=== PATIENT | male | born 1950 | race Caucasian/White ===

== ENCOUNTER → 2017-01-04 | Outpatient (REF) | payer MEDICARE, MEDICAID ==
[~2017-01-04] MED LIST: ADV500INH INH; ALBU17IN INH; ASPI1TAB PO; ASPI81TA13 PO; ATOR1TAB21 PO; AZIT500T2 PO; BUPR150T5 PO; CEFD1CAP8 PO; CEFT500T3 PO; CLAR10CA3 PO; HYDR-3713 PO; IPRA2IN INH; IPRASOL4 INH; LISI-542 PO; LISI25TA PO; LORA10TA2 PO; NIAC1TAB PO; NICO14DI3 TD; NICO21DI5 TD; NORCOTAB PO; PRED10PA PO; PRED20TA PO; SING10TA32 PO; SPIR1CAP INH; SYMB16INH INH
[2017-01-04 13:52] LABS: ALBUMIN 3.8 GM/DL (3.2-5.2); ALBUMIN/GLOBULIN RATIO 1.06 (1.00-1.93); BILIRUBIN,DIRECT 0.3 MG/DL (0.0-0.2); BILIRUBIN,TOTAL 0.6 MG/DL (0.2-1.0); TOTAL PROTEIN 7.4 GM/DL (6.4-8.2)
== END ==
LOC: M SFHCPLAZ 10:39
PROVIDERS: ATTEND Family Medicine
DX: E78.2 Mixed hyperlipidemia (principal)

== ENCOUNTER 2017-02-23 22:29 | Observation (INO) | payer MEDICARE, MEDICAID ==
[~2017-02-23] VITALS: Ht 167.6 cm; Wt 49.7 kg
[~2017-02-23 22:29] MED LIST changes: +LISI2.5T76 PO; -LISI25TA PO
[2017-02-23] MEDS ORDERED: methylPREDNISolone INJ 125 MG/2 ML VIAL (J2930) IV ONE (23:00)
[2017-02-23] MEDS ORDERED: IPRATROPIUM 0.5MG/ALBUTEROL 2.5MG INH SOL UD 3ML (DUONEB)(J7620) NEB PRN (23:00)
[2017-02-23 23:48] LABS: BASO % 0.3 % (0.0-1.0); EOS # 0.1 K/mm3 (0.0-0.50); EOS % 1.2 % (0.0-3.0); LARGE UNSTAINED CELL # 0.2 K/mm3 (0.0-0.4); LARGE UNSTAINED CELL % 1.8 % (0.0-4.0); LYMPH % 9.5 % (24.0-44.0); MEAN CORPUSCULAR HEMOGLOBIN 33.1 pg (27.0-33.0); MEAN CORPUSCULAR HGB CONC 31.9 g/dl (32.0-36.5); MEAN CORPUSCULAR VOLUME 103.6 fl (80.0-96.0); MONO # 0.9 K/mm3 (0.0-0.8); MONO % 8.4 % (0.0-5.0); NEUTROPHILS # 7.9 K/mm3 (1.8-7.7); NEUTROPHILS % 78.8 % (36.0-66.0); PLATELET COUNT, AUTOMATED 167 k/mm3 (150-450); RED CELL DISTRIBUTION WIDTH 12.2 % (11.5-14.5); WHITE BLOOD COUNT 10.1 K/mm3 (4.0-10.0)
[2017-02-24 00:13] LABS: ANION GAP 5 MEQ/L (8-16); BLOOD UREA NITROGEN 12 MG/DL (7-18); CALCIUM LEVEL 8.7 MG/DL (8.8-10.2); CARBON DIOXIDE LEVEL 37 MEQ/L (21-32); CHLORIDE LEVEL 98 MEQ/L (98-107); CREATININE FOR GFR 0.62 MG/DL (0.70-1.30); GLOMERULAR FILTRATION RATE > 60.0 (>49); GLUCOSE, FASTING 140 MG/DL (80-110); POTASSIUM SERUM 3.8 MEQ/L (3.5-5.1); SODIUM LEVEL 140 MEQ/L (136-145)
[2017-02-24] MEDS ORDERED: ALBUTEROL SULFATE 2.5 MG/0.5 ML INH NEB SOLN NEB PRN (00:30)
[2017-02-24] MEDS ORDERED: AZITHROMYCIN INJ 500 MG, VIAL MATE ADAPTER 1 EACH in D5W 250 ML IV ONE (00:30)
[2017-02-24] MEDS ORDERED: cefTRIAXone SOD 2 GM in D5W MINI-BAG PLUS 50 ML IV ONE (00:30)
[2017-02-24] MEDS ORDERED: ONDANSETRON 4MG/2ML VIAL (J2405) IV PRN (00:30)
[2017-02-24] MEDS ORDERED: NICOTINE 21MG/24HR 1 EA TRANSDERMAL TD PRN (02:30)
[2017-02-24 02:40] VITALS: BP 149/84
[2017-02-24] MEDS: IPRATROPIUM 0.5MG/ALBUTEROL 2.5MG INH SOL UD 3ML (DUONEB)(J7620) NEB SCH ×4 (03:41→20:00)
--- NOTE | 2017-02-24 05:43 | HPE ---
DATE OF ADMISSION: 02/24/2017 PRIMARY CARE PROVIDER: Dr. Candido Godfrey. SCREW DOWN: Dr. Portillo. SUPERVISOR WRAPPING ROOM: Dr. Adorno. CHIEF COMPLAINT: Dyspnea, cough, wheezing, and fatigue. HISTORY OF PRESENT ILLNESS: Mr. Stevenson is a 66-year-old male with multiple past medical history, who presented to the emergency room (ER) due to experiencing dyspnea, cough, wheezing, and fatigue since last night. Patient expressed that he has been diagnosed with chronic obstructive pulmonary disease (COPD) and currently is smoking about a half a pack to a pack a day. Patient expressed that since last night he has been having productive cough with green and yellow sputum production. At baseline he does not have cough. Patient also had chills and night sweats; however, patient did not take his temperature. Patient also reported rhinorrhea. Patient had sick contact with his granddaughter who has been diagnosed with bronchitis about two days ago. Patient also expressed mild right lower chest pain, which he believes that this is secondary to coughing. Patient denies vomiting, nausea. Patient expressed that at home he is on 2 liters of oxygen at rest and sleep and on 4 liters with exertion; however, patient expressed that since last night his oxygen usage has increased to 4 liters all the time. ALLERGIES: No known drug allergies. PAST MEDICAL HISTORY: 1. Coronary artery disease status post stent. 2. Hypercholesterolemia. 3. COPD. 4. Graves disease. 5. Osteopenia. 6. Tobacco use. 7. History of colon cancer in remission. PAST SURGICAL HISTORY: 1. Tonsillectomy. 2. Appendectomy. 3. Right thumb tendon repair 1982. 4. Colon cancer resection 1989. 5. Stent in the right coronary artery 2001. 6. Colonoscopy last done by Dr. Park 2004 and 2009. HOME MEDICATION: Ventolin HFA 2 puff inhaler every 4 hours when necessary shortness of breath Albuterol/Ipratropium 1 kaye INH Q4H PRN shortness of breath Aspirin 81 mg by mouth daily Atorvastatin calcium 20 mg by mouth daily at bedtime Loratadine 10 mg by mouth daily at bedtime Singular 10 mg by mouth daily at bedtime Advair Diskus 1 puff inhaled twice a day Spiriva 18 mcg INH daily. FAMILY HISTORY: Patient's father at age 69 due to pneumonia and heart attack. Patient's mother at age 89 due to complication of diabetes. Patient's mother also had known coronary artery disease. Patient has three brothers and four sisters. One of his sisters at age 52 due to cerebral palsy. The other sister due to diabetes mellitus and one due to coronary artery disease. Patient also has three brothers. One at age 51 due to myocardial infarction (CA). The other one due to diabetes mellitus and coronary artery disease. Patient has one sone who is age 43 with bipolar and substance abuse. Patient's daughter alive at age 45 and has depression and substance abuse. SOCIAL HISTORY: Patient lives with his girlfriend. Patient smokes about half a pack to one pack since age 14 or 15. Patient occasionally drinks alcoholic beverages. Patient uses marijuana occasionally. 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 Patient has one cat. REVIEW OF SYSTEMS: GENERAL: Patient expressed that he has been having night sweats; however, patient did not take his temperature. Patient denies weight loss, weight gain. HEENT: Patient denies acute vision changes; however, patient expressed that he has nasal congestion. Patient has a mild headache. Patient denies problem with chewing food or sinusitis. NECK: Patient denies lumps, bumps or decreased range of motion of his neck. LUNGS: Patient expressed having dyspnea and wheezing. Patient also has a productive cough with yellow and green sputum production. HEART: Patient expressed that he has been experiencing palpitations and racing heartbeat with coughing; however, patient denies chest pain. ABDOMEN: Patient denies abdominal pain, nausea, vomiting, diarrhea, constipation, melena, hematochezia, or hemoptysis. NEUROLOGIC: Patient denies a history of transient ischemic attack (TIA), CVA, or seizure-type activities. PHYSICAL EXAMINATION: VITAL SIGNS: Temperature 100.6, pulse 118, respiratory rate 24, blood pressure 119/63, pulse oximetry 98. Patient is on 4 liters nasal cannula. GENERAL APPEARANCE: Patient was lying in bed, no acute distress. Patient was awake, alert, and oriented to time, place and person. HEENT: Normocephalic, atraumatic. Pupils are equal. Oral mucosa is moist. NECK: Soft, supple. No lymphadenopathy. No thyromegaly. HEART: Tachycardic. Normal S1, S2. LUNGS: Patient has inhale and exhale wheezing, as well as scattered rhonchi at the base of the lung. EXTREMITIES: No lower extremity edema, +2 pulses in both lower extremities. Patient has normal range of motion in both upper and lower extremities. NEUROLOGICAL: Cranial nerves II-XII intact. No focal deficiencies. LABORATORY DATA: White blood cells 10.1, red blood cells 4.34, hemoglobin 14.3, hematocrit 44.9, MCV 103.6, MCH 33.1, MCHC 31.9, RDW 12.2, platelet count 167. Neutrophil percentage 8.8, lymphocyte percentage 9.5, monocyte percentage 8.4, eosinophil percentage 1.2, basophil percentage 0.3, leukocyte percentage 1.8. Sodium 140, potassium 3.8, chloride 98, carbon dioxide 27, anion gap 5, BUN 12, creatinine 0.62, glomerular filtration rate more than 60, fasting glucose 140, lactic acid 101, carbon dioxide 8.7, total creatinine kinase 27, CK-MB 1.1, CK- MB relative index 4.07, troponin I less than 0.02, C-reactive protein 9.01. Blood culture is pending. Sputum culture is pending. Nasogastric is pending. Chest x-ray result is pending at this time. ASSESSMENT AND PLAN: 1. Chronic obstructive pulmonary disease (COPD) exacerbation. Patient has chronic respiratory failure with hypoxemia. However, patient's symptoms became worse. This is possibly secondary to viral versus bacterial infection. At this point, we have ordered a sputum culture, as well as respiratory viral panel and result is pending at this time. We have started patient on ceftriaxone, azithromycin; however, we will change these antibiotics based on the result of the culture. Also, at this point, we continued patient on the breathing treatment and we have started patient on Solu-Medrol 40 mg every 6 hours intravenously (IV). Also, patient is on oxygen with oxygen saturation between 88-92%. Also, we will continue patient on home dose of Montelukast. 2. History of hypertension. Patient's blood pressure is stable at this time. We will continue to monitor patient for any abnormal blood pressure. 3. Allergic rhinitis. We will continue patient on home dosage of loratadine. 4. Hyperlipidemia. We will continue patient on atorvastatin. 5. Tobacco abuse. I have ordered Nicoderm daily as needed. Also, I spoke with the patient regarding stopping smoking. 6. Deep venous thrombosis (DVT) prophylaxis. Patient is on Lovenox. 7. Coronary artery disease status post stent in 2001. Patient is on a statin, as well as aspirin. My preceptor for this patient encounter was Dr. Hayde Calzada. The preceptor was physically present in the building during the encounter and was fully available as needed. All aspects of the patient interview, examination, medical decision making process, and medical care plan development were reviewed and approved by the preceptor. The preceptor is aware and concurs with the plan as stated in the body of this note and will attest to such by his/her co-signature. DALE
[2017-02-24 06:00] VITALS: BP 126/64
[2017-02-24] MEDS: BUDESONIDE 0.5 MG/2 ML INHALATION SUSPENSION INH SCH ×2 (07:26→20:08)
[2017-02-24] MEDS: TIOTROPIUM INHALER/CAPSULE (SPIRIVA) INH SCH (07:26)
[2017-02-24] MEDS: ENOXAPARIN 40 MG/0.4 ML SYRINGE (J1650) SC SCH (09:00)
[2017-02-24] MEDS: ASPIRIN 81 MG ENTERIC TAB PO SCH (09:26)
[2017-02-24] MEDS: SENOKOT S TAB PO SCH ×2 (09:26→20:02)
[2017-02-24] MEDS: methylPREDNISolone INJ 40 MG/1 ML VIAL (J2920) IV SCH ×3 (09:26→20:02)
[2017-02-24] MEDS: LORATADINE 10 MG TAB PO SCH (09:26)
--- NOTE | 2017-02-24 11:01 | REP ---
CHEST, TWO VIEWS: HISTORY: Dyspnea and cough. COMPARISON: 10/07/2016 The technique utilized in obtaining the radiograph has magnified the cardiac silhouette and accentuated the interstitial markings. There are chronic lung field changes, status quo. There is fibrosis and evidence of emphysema. Concomitant interstitial edema cannot be ruled out. There is no significant change from the prior exam. There is no change in the osseous structures. The heart is not enlarged. IMPRESSION: Chronic changes as described above, however, concomitant acute disease with pneumonia cannot be ruled out. Signed by Jefe Hart DO 02/24/2017 01:32 P
--- NOTE | 2017-02-24 11:08 | IPNPDOC ---
Subjective Date Seen The patient was seen on 02/24/17. Subjective Chief Complaint/HPI The patient is a 66-year-old male admitted with a reason for visit of Chronic Respiratory Failure W Hypoxia. General: Reports: Normal Appetite, Denies: Chills, Malaise Eyes: Denies: Vision change ENT: Denies: Head Aches, Dysphagia Pulmonary: Reports: Cough, Other Symptoms (less dyspneic than at admission, but still with productive cough which he affirms is new and not chronic), Denies: Pleuritic Chest Pain Cardiovascular: Denies: Chest Pain, Palpitations Gastrointestinal: Denies: Nausea, Abdominal Pain Genitourinary: Denies: Dysuria, Incontinence Hematologic: Denies: Bruising, Petecchia Objective Physical Examination General Exam: Positive: Alert, No Acute Distress Eye Exam: Positive: PERRLA ENT Exam: Positive: Atraumatic, Other ENT (no tracheal shift) Chest Exam: Positive: Diminished, Negative: Rales, Wheezing Heart Exam: Positive: Rate Normal, Regular Rhythm Abdomen Exam: Positive: Normal bowel sounds, Soft, Negative: Tenderness Extremity Exam: Negative: Cyanosis, Edema Neuro Exam: Positive: Normal Speech, Normal Tone Assessment /Plan Problems (1) COPD exacerbation Status: Acute Response to Treatment: Improving Problem Specific Plan: Monitor Clinically Problem Text: improved overnight. will change to po corticosteroid Plan/VTE VTE Prophylaxis Ordered?: Yes Plan Diagnostics: Check Labs Anticipated Discharge: Home VS, I&O, 24H, [facility] Vital Signs/I&O Vital Signs Date Time Temp Pulse Resp B/P (MAP) Pulse Ox O2 Delivery O2 Flow Rate FiO2 02/24/17 06:00 96 Nasal Cannula 2.0 02/24/17 06:00 97.5 89 20 126/64 (84) I&O- Last 24 Hours up to 6 AM 02/24/17 06:00 Intake Total 180 ml Output Total 0 ml Balance 180 ml Laboratory Data 24H LABS Laboratory Tests 2 02/23/17 23:28: White Blood Count 10.1H, Red Blood Count 4.34, Hemoglobin 14.3, Hematocrit 44.9 , Mean Corpuscular Volume 103.6H, Mean Corpuscular Hemoglobin 33.1H, Mean Corpuscular Hemoglobin Concent 31.9L, Red Cell Distribution Width 12.2, Platelet Count 167, Neutrophils (%) (Auto) 78.8H, Lymphocytes (%) (Auto) 9.5L, Monocytes (%) (Auto) 8.4H, Eosinophils (%) (Auto) 1.2, Basophils (%) (Auto) 0.3 , Neutrophils # (Auto) 7.9H, Lymphocytes # (Auto) 1.0L, Monocytes # (Auto) 0.9H , Eosinophils # (Auto) 0.1, Basophils # (Auto) 0.0, Large Unclassified Cells % 1.8, Large Unclassified Cells # 0.2, Anion Gap 5L, Glomerular Filtration Rate > 60.0, Lactic Acid Level 1.1, Blood Urea Nitrogen 12, Creatinine 0.62L, Sodium Level 140, Potassium Level 3.8, Chloride Level 98, Carbon Dioxide Level 37H, Calcium Level 8.7L, Total Creatine Kinase 27L, Creatine Kinase MB 1.1, Creatine Kinase MB Relative Index 4.07H, Troponin I < 0.02, C-Reactive Protein, Quantitative 9.01H 02/24/17 05:27: C-Reactive Protein, Quantitative 7.79H CBC/BMP Laboratory Tests 02/23/17 23:28 Red Blood Count 4.34, Mean Corpuscular Volume 103.6 H, Mean Corpuscular Hemoglobin 33.1 H, Mean Corpuscular Hemoglobin Concent 31.9 L, Red Cell Distribution Width 12.2, Neutrophils (%) (Auto) 78.8 H, Lymphocytes (%) (Auto) 9.5 L, Monocytes (%) (Auto) 8.4 H, Eosinophils (%) (Auto) 1.2, Basophils (%) ( Auto) 0.3, Neutrophils # (Auto) 7.9 H, Lymphocytes # (Auto) 1.0 L, Monocytes # ( Auto) 0.9 H, Eosinophils # (Auto) 0.1, Basophils # (Auto) 0.0, Calcium Level 8.7 L, Total Creatine Kinase 27 L Microbiology Microbiology 02/24/17 Blood Culture, Received Pending 02/23/17 Blood Culture, Received Pending 02/24/17 Respiratory Virus Panel (PCR) (GABY) - Final, Complete 02/24/17 Gram Stain - Final, Resulted 02/24/17 Sputum Culture, Resulted Pending Jose Elias MD February 24, 2017 11:08
[2017-02-24 14:00] VITALS: BP 121/69
--- NOTE | 2017-02-24 14:47 | ECGEPIP ---
Stationary ECG Study [facility] - ED Test Date: 2017-02-23 Pat Name: ERIKA MORRISSEY Department: Room: [place] [address] Gender: M [employer] Detonator: : 1950 Requested By: AMMY ESCUDERO Order Number: [id number] Reading MD: Elly Nova Measurements Intervals [place] Rate: 123 P: 83 TN: 115 QRS: 98 QRSD: 92 T: 53 QT: 303 QTc: 434 Interpretive Statements SINUS TACHYCARDIA WITH SHORT TN INTERVAL BORDERLINE RIGHT AXIS DEVIATION PATTERN CONSISTENT WITH PULMONARY DISEASE NONSPECIFIC T-WAVE ABNORMALITY DEANNA INCREASED RATE 10/07/16 Electronically Signed On 02-24-2017 14:47:15 EDT by Elly Nova
[2017-02-24 20:00] VITALS: BP 143/74
[2017-02-24] MEDS: ATORVASTATIN 20 MG TAB PO SCH (20:02)
[2017-02-24] MEDS: MONTELUKAST 10 MG TAB PO SCH (20:02)
[2017-02-24] MEDS: AZITHROMYCIN 250 MG TAB PO SCH (20:03)
[2017-02-24] MEDS: ADVAIR DISKUS 500/50 INH PWD INH SCH (20:08)
[2017-02-25] MEDS ORDERED: cefTRIAXone SOD 1 GM in D5W MINI-BAG PLUS 50 ML IV SCH ×2
[2017-02-25] MEDS: methylPREDNISolone INJ 40 MG/1 ML VIAL (J2920) IV SCH ×2 (01:03→08:18)
[2017-02-25] MEDS: IPRATROPIUM 0.5MG/ALBUTEROL 2.5MG INH SOL UD 3ML (DUONEB)(J7620) NEB SCH ×4 (01:55→20:00)
[2017-02-25 06:00] VITALS: BP 106/58
[2017-02-25 06:33] LABS: BASO % 0.1 % (0.0-1.0); EOS % 0.1 % (0.0-3.0); LARGE UNSTAINED CELL # 0.1 K/mm3 (0.0-0.4); LARGE UNSTAINED CELL % 0.6 % (0.0-4.0); LYMPH # 0.6 K/mm3 (1.5-4.5); LYMPH % 5.8 % (24.0-44.0); MEAN CORPUSCULAR HEMOGLOBIN 33.3 pg (27.0-33.0); MEAN CORPUSCULAR HGB CONC 32.6 g/dl (32.0-36.5); MEAN CORPUSCULAR VOLUME 102.1 fl (80.0-96.0); MONO # 0.4 K/mm3 (0.0-0.8); MONO % 3.9 % (0.0-5.0); NEUTROPHILS # 8.9 K/mm3 (1.8-7.7); NEUTROPHILS % 89.5 % (36.0-66.0); PLATELET COUNT, AUTOMATED 207 k/mm3 (150-450)
[2017-02-25 06:56] LABS: ANION GAP 5 MEQ/L (8-16); BLOOD UREA NITROGEN 17 MG/DL (7-18); CALCIUM LEVEL 8.3 MG/DL (8.8-10.2); CARBON DIOXIDE LEVEL 36 MEQ/L (21-32); CHLORIDE LEVEL 97 MEQ/L (98-107); CREATININE FOR GFR 0.67 MG/DL (0.70-1.30); GLOMERULAR FILTRATION RATE > 60.0 (>49); GLUCOSE, FASTING 188 MG/DL (80-110); POTASSIUM SERUM 3.6 MEQ/L (3.5-5.1); SODIUM LEVEL 138 MEQ/L (136-145)
[2017-02-25] MEDS: TIOTROPIUM INHALER/CAPSULE (SPIRIVA) INH SCH (08:15)
[2017-02-25] MEDS: ADVAIR DISKUS 500/50 INH PWD INH SCH ×2 (08:15→20:06)
[2017-02-25] MEDS: BUDESONIDE 0.5 MG/2 ML INHALATION SUSPENSION INH SCH ×2 (08:15→20:06)
[2017-02-25] MEDS: ASPIRIN 81 MG ENTERIC TAB PO SCH (08:19)
[2017-02-25] MEDS: LORATADINE 10 MG TAB PO SCH (08:19)
[2017-02-25] MEDS: SENOKOT S TAB PO SCH ×2 (08:19→20:54)
[2017-02-25] MEDS: ENOXAPARIN 40 MG/0.4 ML SYRINGE (J1650) SC SCH (08:22)
--- NOTE | 2017-02-25 10:30 | IPNPDOC ---
Subjective Date Seen The patient was seen on 02/25/17. Subjective Chief Complaint/HPI The patient is a 66-year-old male admitted with a reason for visit of Chronic Respiratory Failure W Hypoxia. Events since last encounter Pt is feeling better today. States breathing improving. Denies CP or Abd pain. Constitutional: Denies: Chills, Fever Pulmonary: Reports: Dyspnea Cardiovascular: Denies: Chest Pain Gastrointestinal: Denies: Nausea, Vomiting, Abdominal Pain Objective Physical Examination General Exam: Positive: Alert, No Acute Distress Eye Exam: Positive: PERRLA ENT Exam: Positive: Atraumatic, Other ENT (no tracheal shift) Chest Exam: Positive: Diminished, Negative: Rales, Wheezing Heart Exam: Positive: Rate Normal, Regular Rhythm Abdomen Exam: Positive: Normal bowel sounds, Soft, Negative: Tenderness Extremity Exam: Negative: Cyanosis, Edema Neuro Exam: Positive: Normal Speech, Normal Tone Assessment /Plan Problems (1) COPD exacerbation Status: Acute Response to Treatment: Improving Problem Specific Plan: Monitor Clinically Problem Text: 02/25 -Changed IV SoluMedrol 60 QID to PO Prednisone 40 mg daily. On IV Ceftriaxone. Change to PO Omnicef. On PO Zithro. 02/24 - improved overnight. will change to po corticosteroid 02/24 BCX - x 2 02/24 SCX P (2) Tobacco use Status: Chronic Problem Specific Plan: Monitor Clinically Problem Text: Has duc patch. (3) Hyperlipemia Status: Chronic Problem Specific Plan: Monitor Clinically Problem Text: On Statin. (4) B12 deficiency Status: Acute Problem Text: 02/24/17 B12 193 c macrocytic anemia 13.4, 102; therefore, start 1 mg SC QD-change to po on d/c Plan/VTE VTE Prophylaxis Ordered?: Yes Plan Diagnostics: Check Labs Anticipated Discharge: Home VS, I&O, 24H, [facility] Vital Signs/I&O Vital Signs Date Time Temp Pulse Resp B/P (MAP) Pulse Ox O2 Delivery O2 Flow Rate FiO2 02/25/17 06:00 98.6 90 20 106/58 (74) 96 Nasal Cannula 2.0 I&O- Last 24 Hours up to 6 AM 02/25/17 06:00 Intake Total 1190 ml Output Total 500 ml Balance 690 ml Laboratory Data 24H LABS Laboratory Tests 2 02/25/17 06:16: White Blood Count 10.0, Red Blood Count 4.02L, Hemoglobin 13.4L, Hematocrit 41.0L, Mean Corpuscular Volume 102.1H, Mean Corpuscular Hemoglobin 33.3H, Mean Corpuscular Hemoglobin Concent 32.6, Red Cell Distribution Width 12.0, Platelet Count 207, Neutrophils (%) (Auto) 89.5H, Lymphocytes (%) (Auto) 5.8L, Monocytes (%) (Auto) 3.9, Eosinophils (%) (Auto) 0.1, Basophils (%) (Auto) 0.1, Neutrophils # (Auto) 8.9H, Lymphocytes # (Auto) 0.6L, Monocytes # (Auto) 0.4, Eosinophils # (Auto) 0.0, Basophils # (Auto) 0.0, Large Unclassified Cells % 0.6 , Large Unclassified Cells # 0.1, Anion Gap 5L, Glomerular Filtration Rate > 60.0, Blood Urea Nitrogen 17, Creatinine 0.67L, Sodium Level 138, Potassium Level 3.6, Chloride Level 97L, Carbon Dioxide Level 36H, Calcium Level 8.3L CBC/BMP Laboratory Tests 02/25/17 06:16 Red Blood Count 4.02 L, Mean Corpuscular Volume 102.1 H, Mean Corpuscular Hemoglobin 33.3 H, Mean Corpuscular Hemoglobin Concent 32.6, Red Cell Distribution Width 12.0, Neutrophils (%) (Auto) 89.5 H, Lymphocytes (%) (Auto) 5.8 L, Monocytes (%) (Auto) 3.9, Eosinophils (%) (Auto) 0.1, Basophils (%) (Auto ) 0.1, Neutrophils # (Auto) 8.9 H, Lymphocytes # (Auto) 0.6 L, Monocytes # (Auto ) 0.4, Eosinophils # (Auto) 0.0, Basophils # (Auto) 0.0, Calcium Level 8.3 L Microbiology Microbiology 02/24/17 Blood Culture - Preliminary, Resulted No growth after 24 hours . All specim... 02/23/17 Blood Culture - Preliminary, Resulted No growth after 24 hours . All specim... 02/24/17 Respiratory Virus Panel (PCR) (GABY) - Final, Complete 02/24/17 Gram Stain - Final, Resulted 02/24/17 Sputum Culture, Resulted Pending Bhavik Payne RPA-C February 25, 2017 10:30 Froy Lou M.D. February 25, 2017 16:22
[2017-02-25 10:57] LABS: VITAMIN B12 LEVEL 193 PG/ML (247-911)
[2017-02-25] MEDS: predniSONE 20 MG TAB PO SCH (11:12)
[2017-02-25] MEDS: CEFDINIR 300 MG CAP (OMNICEF) PO SCH ×2 (11:12→20:54)
[2017-02-25 14:00] VITALS: BP 129/66
[2017-02-25] MEDS: CYANOCOBALAMIN 1,000 MCG/ML VIAL (J3420) SC SCH (17:48)
[2017-02-25] MEDS: ATORVASTATIN 20 MG TAB PO SCH (20:54)
[2017-02-25] MEDS: MONTELUKAST 10 MG TAB PO SCH (20:54)
[2017-02-25] MEDS: AZITHROMYCIN 250 MG TAB PO SCH (20:54)
[2017-02-25 22:00] VITALS: BP 131/74
[2017-02-26] MEDS: IPRATROPIUM 0.5MG/ALBUTEROL 2.5MG INH SOL UD 3ML (DUONEB)(J7620) NEB SCH ×2 (01:29→08:00)
[2017-02-26 06:00] VITALS: BP 116/69
[2017-02-26 06:47] LABS: BASO % 0.1 % (0.0-1.0); EOS % 0.2 % (0.0-3.0); LARGE UNSTAINED CELL # 0.2 K/mm3 (0.0-0.4); LARGE UNSTAINED CELL % 1.3 % (0.0-4.0); LYMPH % 8.4 % (24.0-44.0); MEAN CORPUSCULAR HGB CONC 32.1 g/dl (32.0-36.5); MEAN CORPUSCULAR VOLUME 102.8 fl (80.0-96.0); MONO # 0.8 K/mm3 (0.0-0.8); MONO % 6.2 % (0.0-5.0); NEUTROPHILS # 10.2 K/mm3 (1.8-7.7); NEUTROPHILS % 83.7 % (36.0-66.0); PLATELET COUNT, AUTOMATED 217 k/mm3 (150-450); RED CELL DISTRIBUTION WIDTH 12.1 % (11.5-14.5); WHITE BLOOD COUNT 12.2 K/mm3 (4.0-10.0)
[2017-02-26 06:56] LABS: ANION GAP 4 MEQ/L (8-16); BLOOD UREA NITROGEN 23 MG/DL (7-18); CALCIUM LEVEL 8.7 MG/DL (8.8-10.2); CARBON DIOXIDE LEVEL 37 MEQ/L (21-32); CHLORIDE LEVEL 101 MEQ/L (98-107); CREATININE FOR GFR 0.67 MG/DL (0.70-1.30); GLOMERULAR FILTRATION RATE > 60.0 (>49); GLUCOSE, FASTING 142 MG/DL (80-110); POTASSIUM SERUM 3.9 MEQ/L (3.5-5.1); SODIUM LEVEL 142 MEQ/L (136-145)
[2017-02-26] MEDS: BUDESONIDE 0.5 MG/2 ML INHALATION SUSPENSION INH SCH (08:32)
[2017-02-26] MEDS: TIOTROPIUM INHALER/CAPSULE (SPIRIVA) INH SCH (08:33)
[2017-02-26] MEDS: ADVAIR DISKUS 500/50 INH PWD INH SCH (08:33)
[2017-02-26] MEDS: ENOXAPARIN 40 MG/0.4 ML SYRINGE (J1650) SC SCH ×2 (09:00→10:05)
[2017-02-26] MEDS ORDERED: VITA10002 PO (10:04)
[2017-02-26] MEDS ORDERED: CEFD300CAP PO (10:04)
[2017-02-26] MEDS ORDERED: PRED20TA PO (10:04)
[2017-02-26] MEDS ORDERED: AZIT25TA PO (10:04)
[2017-02-26] MEDS: LORATADINE 10 MG TAB PO SCH (10:06)
[2017-02-26] MEDS: CEFDINIR 300 MG CAP (OMNICEF) PO SCH (10:06)
[2017-02-26] MEDS: ASPIRIN 81 MG ENTERIC TAB PO SCH (10:06)
[2017-02-26] MEDS: CYANOCOBALAMIN 1,000 MCG/ML VIAL (J3420) SC SCH (10:06)
[2017-02-26] MEDS: SENOKOT S TAB PO SCH (10:06)
[2017-02-26] MEDS: predniSONE 20 MG TAB PO SCH (10:06)
--- NOTE | 2017-02-26 10:30 | DSES ---
DATE OF ADMISSION: 02/24/2017 DATE OF DISCHARGE: 02/26/17__ DISCHARGE SUMMARY REASON FOR ADMISSION: The patient with a history of COPD was admitted with complaints of increased dyspnea and work of breathing. Oxygenation was adequate. He was admitted to regular medical floor. Steroids were provided. Antibiotics were provided and increased in frequency of nebulizer therapies were provided. Gradually the patient improved with decrease work of breathing. He did not have hemoptysis, pleuritic pain. Of note, is this patient has sufficient emphysema and that he had previously episodes of pneumothorax. However, this time improved gradually and at this time is ambulating in the halls. His O2 sats are satisfactory and he is ready for discharge. CONDITION ON DISCHARGE: He is alert, ambulating. Vital signs: Blood pressure of 116/69, respiratory rate 16, O2 sat 19% on 2 liters, temperature 97 degrees temporal temperature and pulse 80. Most recent labs include a white count 12,200. His macrocytic indices 102.8. Laboratory did show vitamin B12 deficiency of 193. He has been given subcutaneous B12 and will go home on oral B12 replacement. DISCHARGE MEDICATIONS: - Cefdinir 300 mg by mouth bid for seven more days - prednisone 40 mg daily for five more days - cyanocobalamin 1000 mcg by mouth daily - azithromycin 500 mg daily for 3 more days - Lipitor 20 mg daily - montelukast 10 mg daily. - Advair Discus 500/50 one inhalation twice a day - senna one tablet twice a day - aspirin 81 mg daily - loratadine 10 mg daily - budesonide 0.5 mg twice a day - tiotropium 1 inhalation daily. He has not going to go in the nicotine patch. He will make other efforts to quit smoking. Nicotine patch, he says, damages his skin upon removal. - albuterol metered-dose and nebulization as well as albuterol ipratropium combination agent as needed dyspnea. Activity as tolerated. Follow up 1 week with his primary care provider. Diet: No added salt. He will continue using his oxygen per previous instructions at 2 liters continuous. No special procedures during this hospital stay. No consultations during this hospital stay. discharge diagnosis: COPD exacerbation tobacco abuse emphysema Vitamin B12 deficiency MTDD
== END 2017-02-26 11:36 | disposition home or self-care (01) ==
LOC: EDBD 22:29 → M ED 23:37 → M ED INP 02-24 00:25 → M MSPAV 02-24 02:36
PROVIDERS: ADMIT Internal Medicine Nephrology; ATTEND Family Medicine
DX: J44.1 Chronic obstructive pulmonary disease with (acute) exacerbation (principal); I25.10 Atherosclerotic heart disease of native coronary artery without angina pectoris; E78.00 Pure hypercholesterolemia, unspecified; E05.90 Thyrotoxicosis, unspecified without thyrotoxic crisis or storm; E53.8 Deficiency of other specified B group vitamins; Z99.81 Dependence on supplemental oxygen; Z79.82 Long term (current) use of aspirin; Z79.899 Other long term (current) drug therapy; F17.210 Nicotine dependence, cigarettes, uncomplicated; Z85.038 Personal history of other malignant neoplasm of large intestine
CPT/HCPCS: 36415; 71020; 80048; 82550; 82553; 82607; 82746; 83605; 84484; 85025; 86140; 87040; 87070; 87077; 87184; 87205; 87486; 87581; 87633; 87798; 93005; 93041; 94640; 94760; 96365; 96367; 96372; 96375; 96376; 99285; G0378; J0456; J0696; J1650; J2920; J2930; J3420

== ENCOUNTER → 2017-08-07 | Outpatient (CLI) | payer MEDICARE, MEDICAID ==
[~2017-08-07] MED LIST changes: -ASPI81TA13 PO; +ASPI81TA24 PO; +AZIT250T8 PO; +CEFD300CAP PO; +VITA10002 PO
--- NOTE | 2017-08-08 02:25 | REP ---
Clinical: Primary osteoarthritis. Technique: Internal rotation, external rotation, and Y view of the left shoulder. Findings: Joint space narrowing and subtle cortical irregularity at the acromioclavicular joint is appreciated along with increased sclerosis and subtle blunting along the glenoid rim. Subacromial space is normal. No discrete osteophyte or periarticular calcifications are identified. Impression: Mild osteoarthritic degenerative changes. Signed by Paul Palencia MD 08/08/2017 02:17 A
== END ==
LOC: M RAD 13:53
PROVIDERS: ATTEND Family Medicine
DX: M19.012 Primary osteoarthritis, left shoulder (principal)

== ENCOUNTER 2017-09-07 20:37 | Inpatient (IN) | payer MEDICARE, MEDICAID ==
[~2017-09-07] VITALS: Ht 167.6 cm; Wt 49.2 kg
[2017-09-07] MEDS ORDERED: methylPREDNISolone INJ 125 MG/2 ML VIAL (J2930) IV ONE (21:45)
[2017-09-07 22:26] LABS: BASO # 0.1 10^3/uL (0.0-0.2); BASO % 0.8 % (0.0-1.0); EOS # 0.1 10^3/uL (0.0-0.50); EOS % 0.9 % (0.0-3.0); IMMATURE GRANULOCYTE % 0.6 % (0-0); LYMPH # 1.1 10^3/uL (1.5-4.5); LYMPH % 15.9 % (24.0-44.0); MEAN CORPUSCULAR HEMOGLOBIN 32.2 pg (27.0-33.0); MEAN CORPUSCULAR HGB CONC 32.3 g/dl (32.0-36.5); MEAN CORPUSCULAR VOLUME 99.7 fl (80.0-96.0); MONO % 15.3 % (0.0-5.0); NEUTROPHILS # 4.4 10^3/uL (1.8-7.7); NEUTROPHILS % 66.5 % (36.0-66.0); PLATELET COUNT, AUTOMATED 217 10^3/uL (150-450); RED CELL DISTRIBUTION WIDTH 12.3 % (11.5-14.5); WHITE BLOOD COUNT 6.6 10^3/uL (4.0-10.0)
[2017-09-07 22:26] LABS: VENOUS BASE EXCESS 23.6 (-2.0-2.0); VENOUS O2 SATURATION 93.3 % (60.0-80.0); VENOUS PARTIAL PRESSURE CO2 99.3 mmHg (38.0-50.0); VENOUS PARTIAL PRESSURE O2 66.2 mmHg (30.0-50.0); VENOUS STANDARD HCO3 48.4 MEQ/L
[2017-09-07] MEDS: IPRATROPIUM 0.5MG/ALBUTEROL 2.5MG INH SOL UD 3ML (DUONEB)(J7620) NEB PRN ×2 (22:44→22:45)
[2017-09-07 22:52] LABS: BLOOD UREA NITROGEN 14 MG/DL (7-18); CALCIUM LEVEL 9.1 MG/DL (8.8-10.2); CHLORIDE LEVEL 90 MEQ/L (98-107); CREATININE FOR GFR 0.74 MG/DL (0.70-1.30); GLOMERULAR FILTRATION RATE > 60.0 (>49); GLUCOSE, FASTING 153 MG/DL (80-110); POTASSIUM SERUM 4.1 MEQ/L (3.5-5.1); SODIUM LEVEL 138 MEQ/L (136-145)
[2017-09-07 22:57] LABS: CARBON DIOXIDE LEVEL 58 MEQ/L (21-32)
[2017-09-07 23:48] LABS: ABG BASE EXCESS 21.3 (-2.0-2.0); ABG PARTIAL PRESSURE O2 82.8 mmHg (75.0-100.0); ABG STANDARD HCO3 45.8 MEQ/L (22.0-26.0); ABG TOTAL CO2 53.6 MEQ/L (23.0-31.0); ABG pH (ARTERIAL) 7.397 UNITS (7.350-7.450)
[2017-09-07 23:49] LABS: ABG PARTIAL PRESSURE CO2 84.8 mmHg (35.0-45.0)
[2017-09-08] MEDS ORDERED: IPRATROPIUM 0.5MG/ALBUTEROL 2.5MG INH SOL UD 3ML (DUONEB)(J7620) NEB PRN (01:30)
[2017-09-08] MEDS ORDERED: HYDROCORTISONE 0.5% CREAM 30 GM TOP ONE ×2 (01:45)
[2017-09-08] MEDS ORDERED: VITAMIN A & D OINTMENT 60 GM TOP PRN (02:00)
[2017-09-08] MEDS ORDERED: PANTOPRAZOLE 40MG TAB (PROTONIX) PO ONE (02:15)
[2017-09-08 02:43] LABS: ABG BASE EXCESS 18.4 (-2.0-2.0); ABG HCO3 45.5 MEQ/L (22.0-26.0); ABG PARTIAL PRESSURE CO2 64.8 mmHg (35.0-45.0); ABG PARTIAL PRESSURE O2 129.5 mmHg (75.0-100.0); ABG STANDARD HCO3 42.6 MEQ/L (22.0-26.0); ABG TOTAL CO2 47.5 MEQ/L (23.0-31.0); ABG pH (ARTERIAL) 7.464 UNITS (7.350-7.450)
[2017-09-08 04:05] VITALS: BP 129/66
[2017-09-08] MEDS ORDERED: PANTOPRAZOLE 40MG INJ (PROTONIX) (C9113) IV SCH (09:00)
[2017-09-08] MEDS ORDERED: predniSONE 20 MG TAB PO SCH (09:00)
[2017-09-08] MEDS ORDERED: CHLORHEXIDINE ORAL RINSE 0.12%/15ML 120ML BOTTLE MT SCH (09:00)
[2017-09-08] MEDS ORDERED: ENOXAPARIN 40 MG/0.4 ML SYRINGE (J1650) SC SCH (09:00)
--- NOTE | 2017-09-08 09:05 | HPE ---
DATE OF ADMISSION: 09/08/2017 The patient, Jefe Stevenson, is a 67-year-old male. The patient comes in with chief complaint of shortness of breath. The patient's primary care provider is Dr. Candido Godfrey. The patient to be seen by Dr. Elias today. Patient was first seen on 09/08/2017. The patient's previous medical history includes coronary artery disease, hypercholesterolemia, chronic obstructive pulmonary disease (COPD) on home oxygen, Grave's disease, osteopenia, tobacco use, current smoker, and a history of colon cancer, currently in remission. Surgical history is tonsillectomy, appendectomy, right thumb tendon repair in 1982, colon cancer resection in 1989, stents in the right coronary artery in 2001, colonoscopy in 2004 and 2009. Home medications: The patient's home medications include: - albuterol sulfate - albuterol ipratropium nebulizer - montelukast - Solu-Medrol - Advair Diskus - Spiriva - aspirin - atorvastatin - loratadine HISTORY OF PRESENT ILLNESS: The patient notes that over the last few days he has been feeling increasingly short of breath. The patient has been progressively using greater levels of oxygen to the point where he is now on 4 liters nasal cannula. The patient does admit to some shortness of breath at rest, which is why he decided to come into the hospital, as patient could not longer get comfortable at home. The patient is a current smoker, smoked today. The patient informed of the risks of smoking, continues to smoke. The patient admits to cough, nonbloody in character, nonproductive in character. No known allergies. FAMILY HISTORY: Father with heart disease, mother with diabetes, sister with cerebral palsy, other sister with coronary artery disease. Both son and daughter have substance abuse. Additional history: The patient does admit to using marijuana, as well as smoking in an old history and physical; however, does not admit to that on my history. REVIEW OF SYSTEMS: The patient without any other acute complaints other than itching of his legs. Ten system review complete. PHYSICAL EXAMINATION: The patient is lying down with nasal cannula not in the nose and in mouth. Told the patient that it would be best if he kept it in his nose and the patient is noncompliant on oxygen supplementation use correctly. The patient is resting. Does not appear to be short of breath at rest, however, is mildly tachypneic. The patient is not using accessory muscles. The patient is alert and oriented times three. Normal affect. Normal mood. Patient able to sit up under his own power. Good strength in all four extremities. Patient with mild inspiratory crackles with a slightly below average inspiratory and expiratory effort with slightly below average air movement. Abdomen is soft and nontender to palpation. S1, S2. The patient's head is normocephalic, atraumatic. Patient with poor dentition. No apparent lymphadenopathy. LABORATORY RESULTS: WBC 6.6, hemoglobin and hematocrit is 12.7/39.3, platelet count is 217. Chemistry: Sodium 138, potassium 4.1, chloride 90, carbon dioxide 58, fasting glucose 153, GFR greater than 60, BUN and creatinine 14/7.4. Blood gas showed pH 7.397, PCO2 84.8, PO2 82.8. ABG bicarbonate 51.0. ABG total CO2 53.6. ABG O2 saturation 96.7. ABG base excess 21.3. Bicarbonate standard 45.8. Followup ABG ordered, results pending. IMAGING: Chest x-ray done, no official read. Chest x-ray shows no obvious acute findings. No indication of infection. ASSESSMENT AND PLAN: The patient is a 67-year-old male with home dependent chronic obstructive pulmonary disease (COPD), end stage, currently smoking, comes in with 3 days of increasing shortness of breath. IMPRESSION: The patient is to be admitted in hypercapnic respiratory failure. In discussion with Dr. Arenas, pulmonary realty specialist, Dr. Arenas recommends against BiPAP at this time. Oxygen supplementation with followup ABG. ABG has been ordered, results pending. If respiratory status improves, patient may be downgraded to progressive care unit (PCU). For the patient's itching, A and D ointment for the patient's legs three times a day to be given topically. Chronic obstructive pulmonary disease (COPD) exacerbation. Patient with cough, no obvious signs of infection; however, we will give Zithromax. Oxygen supplementation as noted. No BiPAP for now. We will followup ABG. Patient received high dose IV steroids. We will continue with prednisone 40 mg orally daily. DuoNeb as well. Smoking cessation consultation given. Deep vein thrombosis (DVT) prophylaxis with Lovenox. Gastrointestinal prophylaxis with proton pump inhibitor. Given the nature of the patient's hypercapnia, CO2 of 88, I believe the patient most likely will require a greater than two-midnight stay in order to reach baseline. The patient also may require higher degree of observation than he can get at home. I first saw the patient on 09/08/2017.
[2017-09-08] MEDS: AZITHROMYCIN 250 MG TAB PO SCH (10:13)
[2017-09-08] MEDS: LORATADINE 10 MG TAB PO SCH (10:13)
[2017-09-08] MEDS: ASPIRIN 81 MG ENTERIC TAB PO SCH (10:13)
--- NOTE | 2017-09-08 13:00 | REP ---
CHEST, TWO VIEWS: Two views of the chest are performed and compared to prior study of 02/23/2017. Scattered interstitial fibrosis bilaterally appears essentially stable with no definite superimposed acute infiltrate. Bullous change in the right upper lobe is also stable. Nodular opacity is again seen in the left lung base. Heart is normal in size. The mediastinal silhouette is unchanged. IMPRESSION: Stable chronic changes as above. No definite superimposed acute infiltrate. Signed by Yaya Bone MD 09/08/2017 05:36 P
[2017-09-08 14:00] VITALS: BP 116/62
[2017-09-08] MEDS ORDERED: IPRATROPIUM 0.5MG/ALBUTEROL 2.5MG INH SOL UD 3ML (DUONEB)(J7620) NEB SCH (14:00)
[2017-09-08] MEDS ORDERED: ALBUTEROL SULFATE 2.5 MG/0.5 ML INH NEB SOLN NEB PRN (14:30)
[2017-09-08 14:50] VITALS: BP 130/73
--- NOTE | 2017-09-08 15:22 | IPNPDOC ---
Subjective Date Seen The patient was seen on 09/08/17. Subjective Chief Complaint/HPI The patient is a 67-year-old male admitted with a reason for visit of Hypercapinic Respiratory Failure. General: Reports: Fatigue Eyes: Denies: Vision change Skin: Denies: Rash Pulmonary: Reports: Dyspnea (with exertion), Cough Cardiovascular: Denies: Orthopnea Gastrointestinal: Denies: Nausea Hematologic: Denies: Bruising Neurological: Denies: Weakness Psych: Reports: Anxiety (especially when experiencing exertional dyspnea) Objective Physical Examination General Exam: Positive: Alert, Moderate Distress Eye Exam: Positive: EOMI, Negative: Sclera icteric Chest Exam: Positive: Rhonchi, Wheezing, Diminished (bilateral, symmetric) Heart Exam: Positive: Tachycardic, Regular Rhythm Telemetry: Positive: Sinus, Tachycardia, Other Telemetry: (4 beat run of VT observed during exertion.) Abdomen Exam: Positive: Normal bowel sounds Extremity Exam: Negative: Clubbing, Cyanosis, Edema Psych Exam: Positive: Anxiety Assessment /Plan Problems (1) Acute respiratory failure with hypercapnia Status: Acute Response to Treatment: Uncompensated Problem Text: admitted with worsening AGUILAR. continue to smoke cigarettes and cannabis according to office record. (2) Panlobular emphysema Status: Chronic Response to Treatment: Stable Problem Text: continues to smoke patient is followed by Dr. Portillo (3) Chronic respiratory failure with hypoxia Status: Chronic Response to Treatment: Stable (4) CAD (coronary artery disease) Status: Chronic Response to Treatment: Stable Plan/VTE VTE Prophylaxis Ordered?: Yes Plan Medications: Start Antibiotics, Start Steroids Respiratory: Other Respiratory (ordered routine duonebs with prn albuterol q2 hours. patient is a bit panicky about not having Advair albuterol and spiriva at bedside) add ceftriaxone to azithro; add routine prednisone 40 po bid to nebs of albuterol prn and duoneb routinely. VS, I&O, 24H, Fishbone Vital Signs/I&O Vital Signs Date Time Temp Pulse Resp B/P (MAP) Pulse Ox O2 Delivery O2 Flow Rate FiO2 09/08/17 14:50 99.5 140 30 130/73 (92) 97 Nasal Cannula 3.0 I&O- Last 24 Hours up to 6 AM 09/09/17 05:59 Intake Total 300 ml Output Total 0 ml Balance 300 ml Laboratory Data 24H LABS Laboratory Tests 2 09/07/17 22:09: Blood Gas Bicarbonate Standard 48.4, Venous Blood pH 7.361, Venous Blood Partial Pressure CO2 99.3H, Venous Blood Partial Pressure O2 66.2H, Venous Blood Total Carbon Dioxide 58.0H, Venous Blood HCO3 55.0H, Venous Blood Oxygen Saturation 93.3H, Venous Blood Base Excess 23.6H, Lactic Acid Level 1.5 09/07/17 22:11: Immature Granulocyte % (Auto) 0.6H, White Blood Count 6.6, Red Blood Count 3.94L , Hemoglobin 12.7L, Hematocrit 39.3L, Mean Corpuscular Volume 99.7H, Mean Corpuscular Hemoglobin 32.2, Mean Corpuscular Hemoglobin Concent 32.3, Red Cell Distribution Width 12.3, Platelet Count 217, Neutrophils (%) (Auto) 66.5H, Lymphocytes (%) (Auto) 15.9L, Monocytes (%) (Auto) 15.3H, Eosinophils (%) (Auto ) 0.9, Basophils (%) (Auto) 0.8, Neutrophils # (Auto) 4.4, Lymphocytes # (Auto) 1.1L, Monocytes # (Auto) 1.0H, Eosinophils # (Auto) 0.1, Basophils # (Auto) 0.1 , Immature Granulocyte # (Auto) 0.0, Nucleated Red Blood Cells % (auto) 0.0, Anion Gap , Glomerular Filtration Rate > 60.0, Blood Urea Nitrogen 14, Creatinine 0.74, Sodium Level 138, Potassium Level 4.1, Chloride Level 90L, Carbon Dioxide Level 58H, Calcium Level 9.1, Total Creatine Kinase 52, Creatine Kinase MB 1.7, Creatine Kinase MB Relative Index 3.26, Troponin I < 0.02 09/07/17 23:38: Blood Gas Bicarbonate Standard 45.8H, Arterial Blood pH 7.397, Arterial Blood Partial Pressure CO2 84.8*H, Arterial Blood Partial Pressure O2 82.8, Arterial Blood Total CO2 53.6H, Arterial Blood HCO3 51.0H, Arterial Blood Base Excess 21.3H, Arterial Blood Oxygen Saturation 96.7 09/08/17 02:17: Blood Gas Bicarbonate Standard 42.6H, Arterial Blood pH 7.464H, Arterial Blood Partial Pressure CO2 64.8*H, Arterial Blood Partial Pressure O2 129.5H, Arterial Blood Total CO2 47.5H, Arterial Blood HCO3 45.5H, Arterial Blood Base Excess 18.4H, Arterial Blood Oxygen Saturation 99.3H CBC/BMP Laboratory Tests 09/07/17 22:11 Red Blood Count 3.94 L, Mean Corpuscular Volume 99.7 H, Mean Corpuscular Hemoglobin 32.2, Mean Corpuscular Hemoglobin Concent 32.3, Red Cell Distribution Width 12.3, Neutrophils (%) (Auto) 66.5 H, Lymphocytes (%) (Auto) 15.9 L, Monocytes (%) (Auto) 15.3 H, Eosinophils (%) (Auto) 0.9, Basophils (%) ( Auto) 0.8, Neutrophils # (Auto) 4.4, Lymphocytes # (Auto) 1.1 L, Monocytes # ( Auto) 1.0 H, Eosinophils # (Auto) 0.1, Basophils # (Auto) 0.1, Calcium Level 9.1 , Total Creatine Kinase 52 Microbiology Microbiology 09/07/17 Blood Culture, Received Pending 09/07/17 Blood Culture, Received Pending 09/07/17 Influenza Virus Type A Antigen - Final, Complete 09/07/17 Influenza Virus Type B Antigen - Final, Complete Jose Elias MD Sep 08, 2017 15:22
[2017-09-08] MEDS ORDERED: CEFTRIAXONE SOD 1 GM in APPROPRIATE DILUENT 1 EA IV SCH (17:00)
--- NOTE | 2017-09-08 19:36 | ECGEPIP ---
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
[2017-09-08] MEDS: IPRATROPIUM 0.5MG/ALBUTEROL 2.5MG INH SOL UD 3ML (DUONEB)(J7620) NEB SCH (20:00)
[2017-09-08] MEDS: predniSONE 20 MG TAB PO SCH (20:12)
[2017-09-08] MEDS ORDERED: MONTELUKAST 10 MG TAB PO SCH (21:00)
[2017-09-08] MEDS ORDERED: ATORVASTATIN 20 MG TAB PO SCH (21:00)
--- NOTE | 2017-09-08 21:37 | ECGEPIP ---
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
[2017-09-08 22:00] VITALS: BP 121/66
[2017-09-09] MEDS: IPRATROPIUM 0.5MG/ALBUTEROL 2.5MG INH SOL UD 3ML (DUONEB)(J7620) NEB SCH ×3 (01:00→11:40)
[2017-09-09 06:00] VITALS: BP 102/62
[2017-09-09 06:47] LABS: MEAN CORPUSCULAR HEMOGLOBIN 31.8 pg (27.0-33.0); MEAN CORPUSCULAR HGB CONC 32.5 g/dl (32.0-36.5); MEAN CORPUSCULAR VOLUME 97.8 fl (80.0-96.0); PLATELET COUNT, AUTOMATED 240 10^3/uL (150-450); RED CELL DISTRIBUTION WIDTH 12.3 % (11.5-14.5)
[2017-09-09 07:02] LABS: ANION GAP 3 MEQ/L (8-16); BLOOD UREA NITROGEN 16 MG/DL (7-18); CARBON DIOXIDE LEVEL 40 MEQ/L (21-32); CHLORIDE LEVEL 93 MEQ/L (98-107); GLOMERULAR FILTRATION RATE > 60.0 (>49); GLUCOSE, FASTING 173 MG/DL (80-110); MAGNESIUM LEVEL 1.9 MG/DL (1.8-2.4); SODIUM LEVEL 136 MEQ/L (136-145)
[2017-09-09] MEDS ORDERED: PRED20TA PO ×2 (09:53→09:59)
[2017-09-09] MEDS ORDERED: AZIT-12 PO (09:59)
[2017-09-09] MEDS ORDERED: CEFD1CAP8 PO (09:59)
[2017-09-09] MEDS: ASPIRIN 81 MG ENTERIC TAB PO SCH (10:27)
[2017-09-09] MEDS: predniSONE 20 MG TAB PO SCH (10:27)
[2017-09-09] MEDS: AZITHROMYCIN 250 MG TAB PO SCH (10:27)
[2017-09-09] MEDS: LORATADINE 10 MG TAB PO SCH (10:27)
--- NOTE | 2017-09-10 08:27 | DSES ---
DATE OF ADMISSION: 09/08/2017 DATE OF DISCHARGE: 09/10/2017 PRIMARY CARE PHYSICIAN: Dr. Candido Godfrey. ATTENDING PHYSICIAN: Dr. Clara Merida. HISTORY OF PRESENT ILLNESS: 67-year-old gentleman who presented to [facility] emergency room for several days of feeling increasingly short of breath. Patient had required higher levels of oxygen in the home from 2LNC to 4 liters nasal cannula was necessary. Tachypnea noted with respiratory rate up to 30 in ED Patient was subsequently admitted to Family Medicine Service. HOSPITAL COURSE: Patient was placed on routine nebulizers with prednisone, has been tolerating that well. Feels he is back to baseline and is stable on 3 liters nasal cannula. On physical exam, vital signs are stable. He is afebrile. HEENT: Neck is supple without lymphadenopathy or jugular venous distention (JVD). Cardiovascular: Heart rate and rhythm are regular. Pulmonary: Lungs are diminished throughout. Abdomen: Soft, nontender. IMAGING: Chest x-ray completed 09/07/2017: Stable chronic changes as noted but no infiltrate appreciated. ASSESSMENT: DISCHARGE DIAGNOSES: 1. Acute on chronic respiratory failure. 2. Chronic obstructive pulmonary disease (COPD) exacerbation SECONDARY DIAGNOSES: 1. Graves disease. 2. Osteopenia. 3. Smoker. 4. History of colon cancer. PLAN: Patient will be discharged home. Diet is chronic obstructive pulmonary disease (COPD) diet. Activity is as tolerated. He will followup with primary care physician within the next 5-7 days. Oxygen will be continued at 3 liters nasal cannula and he may increase with exertion as he has been performing at home. MEDICATIONS: - albuterol sulfate HFA every 4 hours as needed for shortness of breath - DuoNebs every 4 hours as needed for shortness of breath - aspirin 81 mg daily - Loratadine 10 mg daily - Singulair 10 mg daily - Advair discus 550 one puff twice daily - Spiriva HandiHaler 18 mcg capsule daily - azithromycin 250 mg tablets for the next 4 days - cefdinir 300 mg by mouth twice daily for the next 7 days Patient is discharged in stable and satisfactory condition with no further questions at time of discharge. MTDD
== END 2017-09-09 12:07 | disposition home or self-care (01) | DRG 189 ==
LOC: EDBD 20:37 → M ED 20:37 → M ED INP 09-08 01:53 → M MSPAV 09-08 04:03
PROVIDERS: ADMIT Internal Medicine; ATTEND Family Medicine
DX: J96.02 Acute respiratory failure with hypercapnia (principal); J44.1 Chronic obstructive pulmonary disease with (acute) exacerbation; J96.11 Chronic respiratory failure with hypoxia; E05.00 Thyrotoxicosis with diffuse goiter without thyrotoxic crisis or storm; F17.200 Nicotine dependence, unspecified, uncomplicated; Z85.038 Personal history of other malignant neoplasm of large intestine; Z79.899 Other long term (current) drug therapy; I25.10 Atherosclerotic heart disease of native coronary artery without angina pectoris; Z79.82 Long term (current) use of aspirin

== ENCOUNTER 2017-10-06 15:18 | Inpatient (IN) | payer MEDICARE, MEDICAID ==
[2017-10-06] MEDS ORDERED: methylPREDNISolone INJ 125 MG/2 ML VIAL (J2930) As Ordered (15:23)
[2017-10-06] MEDS ORDERED: MAGNESIUM SULFATE 1 GM/100 ML D5W BAG (10MG/ML) (J3475) As Ordered (15:23)
[2017-10-06] MEDS: IPRATROPIUM 0.5MG/ALBUTEROL 2.5MG INH SOL UD 3ML (DUONEB)(J7620) NEB ×5 (15:30→21:06)
[2017-10-06] MEDS: methylPREDNISolone INJ 125 MG/2 ML VIAL (J2930) IV (15:40)
[2017-10-06] MEDS: NITROGLYCERIN 2% OINT 1 GM *U/D* PKT TOP (15:45)
[2017-10-06] MEDS: MAG SULF 1GM/100ML (MAG RUN) 1 GM in APPROPRIATE DILUENT 1 EA IV (15:45)
[2017-10-06 15:49] LABS: ABG BASE EXCESS 16.2 (-2.0-2.0); ABG HCO3 52.8 MEQ/L (22.0-26.0); ABG STANDARD HCO3 40.3 MEQ/L (22.0-26.0); ABG TOTAL CO2 57.8 MEQ/L (23.0-31.0)
[2017-10-06 15:53] LABS: ABG pH (ARTERIAL) 7.122 UNITS (7.350-7.450)
[2017-10-06] MEDS: FUROSEMIDE 40 MG/4 ML VIAL (J1940) IV (15:53)
[2017-10-06 15:54] LABS: ABG PARTIAL PRESSURE CO2 165.3 mmHg (35.0-45.0)
[2017-10-06 16:25] LABS: INR 0.88
[2017-10-06 16:29] LABS: LACTIC ACID SEPSIS PROTOCOL 0.9 MMOL/L (0.4-2.0)
[2017-10-06 16:30] LABS: BLOOD UREA NITROGEN 8 MG/DL (7-18); CALCIUM LEVEL 8.5 MG/DL (8.8-10.2); CHLORIDE LEVEL 90 MEQ/L (98-107); CREATININE FOR GFR 0.63 MG/DL (0.70-1.30); GLOMERULAR FILTRATION RATE > 60.0 (>49); GLUCOSE, FASTING 163 MG/DL (80-110); POTASSIUM SERUM 4.5 MEQ/L (3.5-5.1); SODIUM LEVEL 137 MEQ/L (136-145)
[2017-10-06 16:36] LABS: ALBUMIN 4.1 GM/DL (3.2-5.2); ALKALINE PHOSPHATASE 140 U/L (45-117); ALT/SGPT 20 U/L (12-78); AST/SGOT 20 U/L (7-37); BILIRUBIN,DIRECT 0.3 MG/DL (0.0-0.2); BILIRUBIN,TOTAL 0.6 MG/DL (0.2-1.0); MAGNESIUM LEVEL 1.7 MG/DL (1.8-2.4); THYROXINE (T4) 9.1 UG/DL (4.5-12.0); TOTAL PROTEIN 8.2 GM/DL (6.4-8.2)
[2017-10-06 16:58] LABS: CARBON DIOXIDE LEVEL 84 MEQ/L (21-32)
[2017-10-06 17:33] LABS: ABG BASE EXCESS 22.8 (-2.0-2.0); ABG HCO3 58.8 MEQ/L (22.0-26.0); ABG PARTIAL PRESSURE O2 304.4 mmHg (75.0-100.0); ABG STANDARD HCO3 47.7 MEQ/L (22.0-26.0); ABG TOTAL CO2 63.7 MEQ/L (23.0-31.0)
[2017-10-06 17:34] LABS: ABG PARTIAL PRESSURE CO2 158.2 mmHg (35.0-45.0); ABG pH (ARTERIAL) 7.188 UNITS (7.350-7.450)
[2017-10-06 17:55] LABS: BASO % 0.3 % (0.0-1.0); IMMATURE GRANULOCYTE % 0.6 % (0-0); MEAN CORPUSCULAR HEMOGLOBIN 31.6 pg (27.0-33.0); MEAN CORPUSCULAR HGB CONC 30.8 g/dl (32.0-36.5); MEAN CORPUSCULAR VOLUME 102.7 fl (80.0-96.0); MONO # 0.2 10^3/uL (0.0-0.8); MONO % 3.2 % (0.0-5.0); NEUTROPHILS # 6.2 10^3/uL (1.8-7.7); NEUTROPHILS % 93.9 % (36.0-66.0); PLATELET COUNT, AUTOMATED 201 10^3/uL (150-450); RED CELL DISTRIBUTION WIDTH 12.4 % (11.5-14.5); WHITE BLOOD COUNT 6.6 10^3/uL (4.0-10.0)
[2017-10-06] MEDS: CEFTRIAXONE SOD 2 GM in APPROPRIATE DILUENT 1 EA IV (18:09)
[2017-10-06 18:30] LABS: LYMPH # 0.1 10^3/uL (1.5-4.5)
[2017-10-06 18:31] LABS: POSITIVE DIFF POS FLAG
[2017-10-06] MEDS ORDERED: ACETAMINOPHEN TAB 650MG DOSE (2X325MG) PO (20:00)
[2017-10-06] MEDS: AZITHROMYCIN INJ 500 MG, VIAL MATE ADAPTER 1 EACH in D5W 250 ML IV (21:55)
[2017-10-07] MEDS: IPRATROPIUM 0.5MG/ALBUTEROL 2.5MG INH SOL UD 3ML (DUONEB)(J7620) NEB ×7 (00:01→23:08)
[2017-10-07] MEDS: MONTELUKAST 10 MG TAB PO ×2 (00:31→20:40)
[2017-10-07] MEDS: SENOKOT S TAB PO ×3 (00:31→20:40)
[2017-10-07] MEDS: methylPREDNISolone INJ 125 MG/2 ML VIAL (J2930) IV ×4 (00:32→22:15)
[2017-10-07] MEDS: MORPHINE 10MG/0.5ML ORAL CONCENTRATE SOLUTION U/D SL ×2 (00:32→02:29)
[2017-10-07] MEDS: FUROSEMIDE 20 MG/2 ML VIAL (J1940) IV (01:57)
[2017-10-07] MEDS: ALBUTEROL SULFATE 2.5 MG/0.5 ML INH NEB SOLN NEB (05:44)
[2017-10-07 07:27] LABS: BLOOD UREA NITROGEN 16 MG/DL (7-18); CALCIUM LEVEL 8.6 MG/DL (8.8-10.2); CHLORIDE LEVEL 84 MEQ/L (98-107); CREATININE FOR GFR 0.73 MG/DL (0.70-1.30); GLOMERULAR FILTRATION RATE > 60.0 (>49); GLUCOSE, FASTING 170 MG/DL (80-110); SODIUM LEVEL 137 MEQ/L (136-145)
[2017-10-07 08:04] LABS: ANION GAP 7 MEQ/L (8-16); CARBON DIOXIDE LEVEL 46 MEQ/L (21-32)
[2017-10-07] MEDS: ENOXAPARIN 30 MG/0.3 ML SYR (J1650) SC ×2 (09:00→10:10)
[2017-10-07 09:31] LABS: ABG BASE EXCESS 19.3 (-2.0-2.0); ABG HCO3 54.3 MEQ/L (22.0-26.0); ABG PARTIAL PRESSURE O2 211.8 mmHg (75.0-100.0); ABG STANDARD HCO3 43.7 MEQ/L (22.0-26.0); ABG TOTAL CO2 58.7 MEQ/L (23.0-31.0)
[2017-10-07 09:35] LABS: ABG PARTIAL PRESSURE CO2 142.1 mmHg (35.0-45.0)
[2017-10-07] MEDS: ASPIRIN 81 MG ENTERIC TAB PO (10:09)
[2017-10-07] MEDS: LORATADINE 10 MG TAB PO (10:09)
[2017-10-07] MEDS: PANTOPRAZOLE 40MG TAB (PROTONIX) PO (14:01)
[2017-10-07] MEDS: ALPRAZolam 0.5 MG TAB PO ×3 (16:39→21:57)
[2017-10-07 17:12] LABS: ABG BASE EXCESS 22.3 (-2.0-2.0); ABG HCO3 55.3 MEQ/L (22.0-26.0); ABG STANDARD HCO3 46.8 MEQ/L (22.0-26.0); ABG TOTAL CO2 58.8 MEQ/L (23.0-31.0); ABG pH (ARTERIAL) 7.303 UNITS (7.350-7.450)
[2017-10-07 17:13] LABS: ABG PARTIAL PRESSURE CO2 114.1 mmHg (35.0-45.0)
[2017-10-07] MEDS: CEFTRIAXONE SOD 1 GM in APPROPRIATE DILUENT 1 EA IV (17:47)
[2017-10-07] MEDS: AZITHROMYCIN INJ 500 MG, VIAL MATE ADAPTER 1 EACH in D5W 250 ML IV (20:53)
[2017-10-07] MEDS ORDERED: LORazepam 2 MG/ML VIAL (J2060) As Ordered (23:19)
[2017-10-07] MEDS: LORazepam 2 MG/ML VIAL (J2060) IV (23:28)
[2017-10-08] MEDS: IPRATROPIUM 0.5MG/ALBUTEROL 2.5MG INH SOL UD 3ML (DUONEB)(J7620) NEB ×3 (03:30→11:53)
[2017-10-08 05:25] LABS: ANION GAP 7 MEQ/L (8-16); CALCIUM LEVEL 8.5 MG/DL (8.8-10.2); CARBON DIOXIDE LEVEL 43 MEQ/L (21-32); CHLORIDE LEVEL 83 MEQ/L (98-107); CREATININE FOR GFR 1.06 MG/DL (0.70-1.30); GLOMERULAR FILTRATION RATE > 60.0 (>49); GLUCOSE, FASTING 164 MG/DL (80-110); POTASSIUM SERUM 4.8 MEQ/L (3.5-5.1); SODIUM LEVEL 133 MEQ/L (136-145)
[2017-10-08 05:52] LABS: BLOOD UREA NITROGEN 44 MG/DL (7-18)
[2017-10-08 06:05] LABS: ABG BASE EXCESS 21.5 (-2.0-2.0); ABG HCO3 55.9 MEQ/L (22.0-26.0); ABG PARTIAL PRESSURE O2 64.8 mmHg (75.0-100.0); ABG STANDARD HCO3 45.9 MEQ/L (22.0-26.0); ABG TOTAL CO2 60.1 MEQ/L (23.0-31.0)
[2017-10-08 06:09] LABS: ABG PARTIAL PRESSURE CO2 136.3 mmHg (35.0-45.0); ABG pH (ARTERIAL) 7.231 UNITS (7.350-7.450)
[2017-10-08] MEDS: methylPREDNISolone INJ 125 MG/2 ML VIAL (J2930) IV (06:15)
[2017-10-08 08:12] LABS: BASO % 0.1 % (0.0-1.0); IMMATURE GRANULOCYTE # 0.1 10^3/uL (0-0); IMMATURE GRANULOCYTE % 0.3 % (0-0); LYMPH # 0.4 10^3/uL (1.5-4.5); MEAN CORPUSCULAR HEMOGLOBIN 31.5 pg (27.0-33.0); MEAN CORPUSCULAR HGB CONC 31.1 g/dl (32.0-36.5); MEAN CORPUSCULAR VOLUME 101.2 fl (80.0-96.0); MONO # 1.1 10^3/uL (0.0-0.8); MONO % 7.5 % (0.0-5.0); NEUTROPHILS # 12.9 10^3/uL (1.8-7.7); NEUTROPHILS % 89.1 % (36.0-66.0); PLATELET COUNT, AUTOMATED 261 10^3/uL (150-450); RED CELL DISTRIBUTION WIDTH 12.5 % (11.5-14.5); WHITE BLOOD COUNT 14.5 10^3/uL (4.0-10.0)
[2017-10-08] MEDS: LORATADINE 10 MG TAB PO (09:00)
[2017-10-08] MEDS: SENOKOT S TAB PO (09:00)
[2017-10-08] MEDS: PANTOPRAZOLE 40MG TAB (PROTONIX) PO (09:00)
[2017-10-08] MEDS: ENOXAPARIN 30 MG/0.3 ML SYR (J1650) SC (09:00)
[2017-10-08] MEDS: ASPIRIN 81 MG ENTERIC TAB PO (09:00)
[2017-10-08] MEDS ORDERED: SCOPOLAMINE 1MG TRANSDERMAL PATCH TOP (11:00)
== END 2017-10-08 14:10 | disposition expired | DRG 189 ==
LOC: M ICU 10-07 09:12 → M ED 15:18 → M ED INP 19:51 → M MS4PR 23:21
DX: J96.02 Acute respiratory failure with hypercapnia (principal); J44.1 Chronic obstructive pulmonary disease with (acute) exacerbation; E87.2 Acidosis; N17.9 Acute kidney failure, unspecified; J44.0 Chronic obstructive pulmonary disease with (acute) lower respiratory infection; J21.0 Acute bronchiolitis due to respiratory syncytial virus; Z66 Do not resuscitate; F17.210 Nicotine dependence, cigarettes, uncomplicated; E78.5 Hyperlipidemia, unspecified; I25.10 Atherosclerotic heart disease of native coronary artery without angina pectoris; Z95.9 Presence of cardiac and vascular implant and graft, unspecified; Z85.038 Personal history of other malignant neoplasm of large intestine; Z79.82 Long term (current) use of aspirin; Z79.52 Long term (current) use of systemic steroids; Z79.899 Other long term (current) drug therapy; B97.4 Respiratory syncytial virus as the cause of diseases classified elsewhere; Z95.2 Presence of prosthetic heart valve